=== PATIENT | female | born 1985 | race Caucasian/White ===

== ENCOUNTER 2018-06-10 18:04 | Emergency (ER) | payer OTHER, SELFPAY ==
[2018-06-10 18:04] VITALS: BP 132/78; PULSE 94; RESP 16; TEMP 36.2; O2SAT 100; BMI 38.7
--- NOTE | 2018-06-10 19:20 | ED.DCSUM_ITS ---
- ER Visit Summary Date of Service: 06/10/18 Chief Complaint: Vaginal bleeding History of Present Illness: The patient is a 33 F presenting for evaluation secondary to vaginal bleeding. Patient states that she is a at 11 weeks who was doing yard work today and noted that she had some vaginal bleeding when she came inside. She denies any pelvic pain or loss of fluid. Patient is O- blood type. Physical Examination: Vital signs are within normal limits, patient is afebrile. General: Patient is well-nourished well-developed and in no acute distress. Head: Normocephalic, atraumatic Eyes: Pupils equal round and reactive bilaterally, extra occular motion intact bialterally ENT: Moist mucous membranes Neck: Supple, no lymphadenopathy, no JVD, no meningismus CVS: Heart regular rate and rhythm, no murmurs, rubs or gallops, radial pulses 2+ bilaterally Resp: Respirations nondistressed, lung sounds clear bilaterally Abdomen: Soft, nontender, nondistended, no palpable masses, normal bowel sounds Back: Nontender Extremities: Nontender, atraumatic, active full range of motion, no peripheral edema Skin: warm, no rashes, no petechia Neuro: Alert and oriented x 4, CN 2-12 intact, no lateralizing neurological defecits Psyc: Normal affect Test Results: O neg Emergency Department Course and Treatment: Patient presented with vaginal bleeding. Bedside ultrasound confirmed movement with heart rate of 161. Patient was given RhoGam in the emergency department and was discharged with outpatient follow-up with OB Disposition: Discharge Impression: 1. Threatened miscarriage This note was generated with Zipzoom dictation software. It may contain incorrect words, spelling, and punctuation that were not noted in review of the chart prior to signing ED Disposition - Plan for ED Patient: Disposition: Home or Assisted Living Chief Complaint: Vag Bld, Preg Diagnosis: Threatened miscarriage Instructions: ED Miscarriage Poss Additional Instructions: Followup at the [facility]
--- NOTE | 2018-06-10 21:27 | ED.RN ---
BAR CODE TO VERIFY RHOGAM WOULD NOT SCAN. LAB UP TO ASSIST, UNABLE TO SCAN. LOT NUMBER, PRODUCT VERIFIED BY SECOND RN [place].
== END 2018-06-10 21:18 | disposition home or self-care (01) ==
PROVIDERS: Emergency Provider Emergency Medicine; Family Provider Family Medicine; PCP Family Medicine
DX: O20.0 Threatened abortion (principal); Z3A.11 11 weeks gestation of pregnancy; E10.9 Type 1 diabetes mellitus without complications
CPT/HCPCS: 86850; 86900; 90384; 99282; J2790

== ENCOUNTER 2018-12-22 02:55 | Inpatient (IN) | payer OTHER, SELFPAY ==
--- NOTE | 2018-12-20 17:26 | PCM.HP.BLA ---
History and Physical Date of Admission: 12/22/18 Pre-Op History and Physical HPI: The patient is a 33 year old female presenting for pre-operative visit. She is scheduled for , for LGA, GDM on 12/22/18. Procedure discussed along with risks, benefits and complications. Other alternatives discussed for management. Consent form signed? Yes. PAST MEDICAL HISTORY Diagnosis Date ? Abnormal Pap smear of cervix 2008 PPH, ? Depression ? Mental disorder ? depression ? Type 1 diabetes mellitus (HCC) PAST SURGICAL HISTORY Procedure Laterality Date ? PAST SURGICAL HISTORY OF wisdom teeth Current Outpatient Medications Medication Sig Dispense Refill ? blood sugar diagnostic (CONTOUR NEXT TEST STRIPS) test strip Checking blood sugars 4 times daily. DX: O24.011, insulin requiring. 400 Strip 1 ? Iron 18 mg tab Take by mouth. ? insulin aspart U-100 (NOVOLOG U-100 INSULIN ASPART) 100 unit/mL soln INJECT SUBCUTANEOUS 90 UNITS TOTAL DAILY VIA INSULIN PUMP. 90 mL 1 ? aspirin, enteric coated (ECOTRIN LOW STRENGTH) 81 mg EC tablet Take 1 tablet by mouth once daily. ? Dsbreplv-Kj-Ffm-Fe-FA ( VITAMIN) tab Take 1 tablet by mouth once daily. ? Blood-Glucose Meter (BLOOD GLUCOSE MONITORING) monitoring kit 1 Each as needed. 1 Each 0 ? Lancets (MICROLET LANCET) lancets use as directed 8 times daily 300 Each 4 No current facility-administered medications for this visit. ALLERGIES: Patient has no known allergies. PERSONAL HISTORY: Social History Socioeconomic History Marital status: Spouse name: Js Number of children: 1 Years of education: 13 Highest education level: Not on file Social Needs Financial resource strain: Not on file Food insecurity - worry: Not on file Food insecurity - inability: Not on file Transportation needs - medical: Not on file Transportation needs - non-medical: Not on file Occupational History Occupation: CUSTOMER SERVICE Employer: [employer] Tobacco Use Smoking status: Former Smoker Packs/day: 0.25 Years: 4.00 Pack years: 1 Types: Cigarettes Start date: 09/26/1999 Quit date: 09/26/2003 Years since quittin.2 Smokeless tobacco: Never Used Tobacco comment: pateint smoked less then a quarter a pack per day Substance and Sexual Activity Alcohol use: Yes Comment: rare, not while Drug use: No Sexual activity: Yes Partners: Male Other Topics Concerns: Not on file Social History Narrative Lives with 10 year old son. He's in good health. FAMILY HISTORY: FAMILY HISTORY Problem Relation Age of Onset ? Diabetes Brother ? Arthritis Mother ? No Known Problems Father ? No Known Problems Brother ? No Known Problems Maternal Grandmother ? No Known Problems Maternal Grandfather ? No Known Problems Paternal Grandmother ? No Known Problems Paternal Grandfather REVIEW OF SYMPTOMS: GENERAL: denies fevers or chills ENDOCRINOLOGY: has not been on steroids Cardiology : denies palpitations or chest pain Respiratory: denies SOB or cough Hematology: denies history of prolonged bleeding or easy bruising or VTE Allergy: Denies history of personal or family history of allergy to anesthesia PHYSICAL EXAMINATION: VITALS: Blood pressure 130/84, weight 225 lb (102.1 kg), last menstrual period 03/23/2018. GENERAL: The patient is well nourished, well hydrated in no acute distress. , The patient is oriented to time, place, and person. NECK: Supple. No lynphadenopathy, normal thyroid, no thyromegaly. LUNGS: Clear to auscultation bilaterally. no wheezes, rhonchi or rales HEART: Regular rate and rhythm, Normal heart sounds and No murmurs or gallops abd- soft, nontender, gravid, large for gestational age IMPRESSIOPlan: The risks/benefits/alternatives and personal involved for the planned c/s were reviewed with the patient. Her questions were answered to her satisfaction and she desires to proceed. Consent was signed. I reviewed with her postop instructions and expectations. Patient will be 39 1/7 weeks at time of planned c/s on 12/22/18. This H&P was performed in my office 12/20/18 I have reviewed and updated past medical and surgical history, medications and allergies Jovita Reese M.D.
[2018-12-22] VITALS (19 sets, daily range): BP systolic 91–136; BP diastolic 41–88; PULSE 76–109; RESP 16–18; TEMP 36.2–36.9; O2SAT 94–100; BMI 39.9
--- NOTE | 2018-12-22 | PLAC_PTH ---
PATIENT: CHAZ VERGARA LOC: WP U#:[id number] AGE/SX: 33/F ROOM: WP006 RE12/22/[address]: Dr. Jovita Reese MD : 1985 BED: 1 DIS: 12/25/2018 SPEC #: [id number] RECD: 12/22/18 12:25 STATUS: DELMER REQ #: [id number] MARY: 12/22/18 00:[address]: Jovita Reese DEPT: SURGICAL PATHOLOGY RECD BY: Keith Paredes ENTERED: 12/22/18 12:25 SP TYPE: PLACENTA OTHR DR: Dr. Yovany Hurtado MD Tissues: Placenta, NOS Procedures: Surgery Specimen Level V HEADER OPERATION: Primary section PRE-OP DIAGNOSIS: Polyhydramnios TISSUE SUBMITTED: Placenta MICROSCOPIC DIAGNOSIS Gilliam placenta (870 gm): Umbilical cord - trivascular with no evidence of inflammation. Placental membranes - no pathologic change. Placental disc - foci of organizing intraparenchymal hemorrhage, mildly increased intraparenchymal fibrin plaques and mild Aruna-Guillermo change. AM:brendon 12/27/18 MICROSCOPIC DESCRIPTION Slides are reviewed. GROSS DESCRIPTION SPECIMEN: PLACENTA / CLINICAL INFORMATION: A. Weight: 4.572 kg B. Gestational Age: 39 weeks C. Sex: Female PLACENTAL WEIGHT (POST FIXATION): 870 gm PLACENTAL DIMENSIONS: 17 x 15 x 4 cm PLACENTAL SHAPE: Usual ovoid PLACENTAL WEIGHT FOR GESTATIONAL AGE: Over 99th percentile MEMBRANES - Present A. Insertion: Marginal B. Site of rupture from edge: At edge of placental disc C. Color of membrane: Cordero-braswell D. Abnormalities: None UMBILICAL CORD - Present A. Color: Cordero-braswell B. Insertion: Eccentric C. Length: 27 cm D. Diameter: 1.5 cm E. Number of vessels: Three F. Abnormalities: None PLACENTAL DISC - Present A. Color of surface: Cordero-braswell B. surface abnormalities: None C. Maternal cotyledons: Intact with minimal tears D. Attached retro placental clot: No clot E. Cut surface: Dark red and spongy F. Lesions: Two cordero-white lesions measuring 2 and 2.5 cm in greatest dimension. G. Separate clot: Absent SECTIONS SUBMITTED: 1. Umbilical cord ( end notched) 2. Membrane roll 3. Placental disc, and maternal surfaces, lesion 4. Placental disc, and maternal surfaces, lesion 5. Placental disc, and maternal surfaces AM:brendon 12/26/18 TC:5 CPT: 61135
[2018-12-22 03:55] LABS: Bedside Glucose 147 mg/dL (70-110)
[2018-12-22] MEDS: Lactated Ringers 1,000 ML 999 ML IV (05:16)
[2018-12-22 05:26] LABS: Bedside Glucose 128 mg/dL (70-110)
[2018-12-22 05:32] LABS: Absolute Lymphocyte Count 1.92 X10^3/ul (0.83-4.51); Absolute Neutrophil Count 6.1 X10^3/uL (2.0-7.7); Basophil# 0.01 X10^3/uL; Basophil% 0.1 % (0-1); Eosinophil# 0.04 X10^3/uL; Eosinophils% 0.5 % (0-5); Hematocrit 34.4 % (37-47); Hemoglobin 11.6 g/dl (12.0-15.0); Lymphocyte # 1.92 X10^3/ul (4.0); Mean Corp Hgb Conc 33.7 g/gl (32-36); Mean Corpuscular Hgb 33.6 pg (27.0-32.0); Mean Corpuscular Volume 99.7 fL (81-99); Mean Platelet Vol. 11.6 fl (6.2-12.0); Monocyte# 0.63 X10^3/uL; Monocyte% 7.2 % (0-10); Neutrophil # 6.08 X10^3/uL (2.7-7.7); Neutrophil % 69.9 % (47-70); Platelet Count 187 K/mm3 (150-450); RBC Distribution Width CV 14.8 % (11.6-14.6); RBC Distribution Width SD 52.9 fl (35.1-43.9); Red Blood Count 3.45 M/mm3 (4.2-5.4); White Blood Count 8.7 K/mm3 (4.4-11.0)
[2018-12-22 05:33] LABS: POSITIVE COUNT NO; POSITIVE DIFFERENTIAL NO; POSITIVE MORPHOLOGY NO
[2018-12-22] MEDS: Lactated Ringers 1,000 ML 150 ML IV (06:14)
[2018-12-22 06:56] LABS: Bedside Glucose 106 mg/dL (70-110)
[2018-12-22] MEDS: Sodium Citrate/Citric Acid 30 ML UDC PO (07:11)
[2018-12-22] MEDS: Cefazolin 2 GM in 0.9% Normal Saline 100 ML IV (07:46)
[2018-12-22] MEDS: Oxytocin 30 units/NS 500 ml 30 UNITS/500 ML IV.SOLN 167 UNITS IV (07:54)
[2018-12-22] MEDS: Ketorolac 30 MG/ML Syringe IV ×3 (08:14→19:55)
--- NOTE | 2018-12-22 08:23 | OP.PCM_ITS ---
Delivery Classification: Scheduled Final CHRIS: 12/28/18 Final CHRIS Source: US <20 weeks Gestational age: 39 Weeks and 1 Days Indications for : - - Type 1 diabetes, suspected macrosomia, polyhydramnios, spontaneous rupture of membranes, maternal obesity BMI 40 Description of Procedure: The patient was taken to the operating room. She was prepped and draped in the dorsal supine position with a leftward tilt. A Pfannenstiel skin incision was made approximately 2 cm above the symphysis pubis and carried through to underlying layer fascia with the scalpel. The fascia was incised incised in the midline and extended laterally with the Loredo scissors. The fascia was dissected off the rectus muscles with blunt and sharp dissection. The rectus muscles were in the midline and the peritoneum was entered bluntly. The peritoneal incision was stretched and the bladder blade was placed. The uterine incision was made in a low transverse fashion with the scalpel and extended superiorly and inferiorly with blunt dissection. The amniotic membranes were ruptured bluntly and clear amniotic fluid returned. The infant's head was brought to the incision in the flexed position and delivered without difficulty. The remainder of the infant was delivered with gentle traction and fundal pressure in the standard fashion. The mouth and nares were bulb suctioned. The cord was clamped and cut as the infant was stimulated. Cord clamping was delayed. The was handed off to the waiting nursing staff. The placenta was delivered with fundal massage and gentle traction in the standard fashion. The uterus was exteriorized and cleared of all clots and debris. The cervix was dilated with a ring forcep. The uterine incision was closed with #1 Vicryl in a running locked fashion. A second layer of the same suture was used in an imbricating fashion. Wsagfo-rn-cuobo suture was needed in the midline of the incision in a sinus. The incision was examined and was found to be hemostatic. The uterus was placed back into the peritoneal cavity and hemostasis was again confirmed. The rectus muscles were examined and any bleeding was Bovie cauterized. The parietal peritoneum and rectus muscles were closed en bloc with an 0 Vicryl running suture. The surgical teams outer gloves were then changed. The rectus fascia was examined and any bleeding was Bovie cauterized and the rectus fascia was closed with 1 Vicryl suture in a running standard fashion. The subcutaneous tissue was examining and any bleeding was Bovie cauterized. The subcutaneous tissue was reapproximated with 3-0 Vicryl suture. The skin was closed in a subcuticular fashion by the EMBOSSING PRESS OPERATOR with me present in the labor and delivery suite. I performed the remainder of the procedure with assistance. All sponge, lap, and needle counts were correct. The patient was taken to her room for recovery in a stable condition. Amniotic Membrane Rupture Type: Spontaneous Amniotic Fluid Description: Clear Placenta Disposition: Sent to Pathology Drain: Banks to straight drain Cord Entanglement: None Cord Vessel Description: 3 Vessels Esitmated Blood Loss (ml): 800 Infant Gender: Female (1 minute): 8 (5 minute): 8 Delayed cord clamping: Yes Pre-op Antibiotic Given: Ancef 2 grams IV x1 - And Zithromax Complications: None - Admit VTE Documentation VTE Present on Admission: No VTE Mechan Device Prophylaxis: SCD's VTE Pharm Prophylaxis ordered?: Yes
[2018-12-22] MEDS: Lactated Ringers 1,000 ML 100 ML IV ×3 (08:30→22:06)
[2018-12-22] MEDS: Methylergonovine 0.2 MG/ML Ampul IM (08:57)
--- NOTE | 2018-12-22 09:25 | NURSING ---
updated dr reynaga on pt third large clot. one in the csection room and two in recovery. methergine given [id number]. verbal order received for cytotec 800 mg rectally. will weigh pads and continue to monitor.
[2018-12-22] MEDS: miSOPROStol 200 MCG Tablet 800 MCG RECTAL (09:36)
[2018-12-22 10:36] LABS: Bedside Glucose 162 mg/dL (70-110)
[2018-12-22] MEDS: Senna/Docusate Sodium 1 Tablet PO ×2 (10:41→22:07)
[2018-12-22] MEDS: Insulin Basal Pump 1 UNIT SC (12:16)
[2018-12-22 12:36] LABS: Bedside Glucose 156 mg/dL (70-110)
[2018-12-22] MEDS: 0.9% Saline Lock 10 ML Syringe IV (14:03)
--- NOTE | 2018-12-22 18:16 | NURSING ---
pt eduacted on zofran for nausea. pt denies wanting to use this medication. pt also educated on importance of notifying this RN when dinner has been ordered so a blood sugar can be obtained. pt asymptomatic at this time. will continue to monitor. pt insulin pump in use.
[2018-12-22 22:35] LABS: Bedside Glucose 102 mg/dL (70-110)
[2018-12-23] VITALS (7 sets, daily range): BP systolic 97–120; BP diastolic 54–70; PULSE 78–98; RESP 16–20; TEMP 36.1–36.8; O2SAT 95–100
[2018-12-23] MEDS: Ketorolac 30 MG/ML Syringe IV ×4 (02:34→20:00)
[2018-12-23 04:32] LABS: Hematocrit 24.9 % (37-47); Hemoglobin 8.1 g/dl (12.0-15.0); Mean Corp Hgb Conc 32.5 g/gl (32-36); Mean Corpuscular Hgb 32.8 pg (27.0-32.0); Mean Corpuscular Volume 100.8 fL (81-99); Mean Platelet Vol. 10.8 fl (6.2-12.0); Platelet Count 139 K/mm3 (150-450); RBC Distribution Width CV 14.6 % (11.6-14.6); RBC Distribution Width SD 50.2 fl (35.1-43.9); Red Blood Count 2.47 M/mm3 (4.2-5.4); White Blood Count 9.9 K/mm3 (4.4-11.0)
[2018-12-23 04:35] LABS: Scan Indicated on CBC? Y/N NO
[2018-12-23 05:59] LABS: Pathology Specimen OB SEE PATHOLOGY REPORT
[2018-12-23] MEDS: Enoxaparin 40 MG/0.4 ML Syringe SC (06:26)
[2018-12-23] MEDS: 0.9% Saline Lock 10 ML Syringe IV ×3 (07:45→20:00)
[2018-12-23 08:31] LABS: Bedside Glucose 30 mg/dL (70-110)
--- NOTE | 2018-12-23 08:55 | CASEMGMT ---
Social Work Brief Assessment - Labor and Delivery Unit Refer documentation below for further details. Date of Referral/Notification: 12/22/18 Time of Referral: 12:48P Reason for Referral: HX OF POST DEPRESSION (PPD) Date of Intervention: 12/23/18 Time of Intervention: 8:55A Informant: Medical record and mother of baby (MOB) History: MOB REPORTS HX OF PPD WITH FIRST CHILD. MOB STATES HAD SON, MICHAEL TOLEDO AT THE AGE OF 17. MOB STATES IT TOOK HER SEVERAL YEARS TO SEEK COUNSELING. MOB STATES WAS AT ONE TIME PRESCRIBED LEXAPRO AND WEANED SELF OFF. Assessment: MOB SITTING UP IN BED BREAST FEEDING BABY GIRL, ABRAHAN VERGARA UPON THIS WORKER ENTERING ROOM. FOB, MARKUS VERGARA AT BEDSIDE. INTRODUCED ROLE AND REASON FOR REFERRAL. BOTH VERBALIZED UNDERSTANDING OF REFERRAL. MOB GAVE HX OF HAVING A CHILD AT THE AGE OF 17, SON MICHAEL TOLEDO WHO IS NOW AGE 17. MOB BELIEVES SUFFERED FROM PPD, BUT REPORTS WAS NEVER DIAGNOSED. MOB REPORTS SOUGHT OUT COUNSELING ABOUT 12 YEARS AGO. MOB DENIES ANY OTHER MENTAL HEALTH HX. DENIES ANXIETY, DEPRESSION AND SUCIDAL IDEATION. MOB AND FOB STATE HAVE ALL NEEDS MET FOR BABY. MOB AND FOB REPORT GOOD SUPPORT FROM FAMILY AND FRIENDS. REVIEWED SIGNS AND SYMPTOMS OF PPD AND PROVIDED MOB WITH EDUCATIONAL HANDOUTS. UPDATED MOB'S NURSE, MILADIS ON THE ABOVE. Plan: HOME WITH RESOURCES/EDUCATION ON PPD No further needs requested or indicated. -Carolina Ortiz, CCO, VOLTAGE REGULATOR ASSEMBLER
[2018-12-23 09:11] LABS: Bedside Glucose 90 mg/dL (70-110)
--- NOTE | 2018-12-23 09:38 | PCM.PN.OB ---
Subjective: Doing well per patient and nursing staff. Ambulating and passing flatus. - Physical Exam General: Alert, Oriented x3, Cooperative HEENT: Atraumatic, Normocephalic Neck: Trachea Midline Lungs: Clear to auscultation, Normal air movement, No rhonchi, No wheeze Cardiovascular: Regular rate, Regular Rhythm, No murmurs Abdomen: Soft, Hypoactive Bowel Sounds, - - Not passing flatus but feels like she may need to have a bowel movement. Dressing clean, dry and intact. Extremities: Edema - +1 BLE edema. SCDs in place. Sitting up at side of bed. Psych/Mental Status: Normal Affect, Appropriate Vital Signs Temp Pulse Resp BP Pulse Ox 97.0 F L 90 18 97/54 L 100 12/23/18 03:55 12/23/18 06:30 12/23/18 06:30 12/23/18 03:55 12/23/18 06:30 Oxygen Delivery Method Room Air Weight: 225 lb 8.526 oz Body Mass Index (BMI) 39.9 Intake and Output for Last 24 Hours 12/21/18 12/22/18 12/23/18 23:59 23:59 23:59 Intake Total 5306 / 5306 1786 / 1786 Output Total 1150 / 1150 2800 / 2800 Balance 4156 / 4156 -1014 / -1014 Laboratory Tests Past 24 Hrs 12/23/18 04:05 WBC 9.9 RBC 2.47 L Hgb 8.1 L Hct 24.9 L MCV 100.8 H MCH 32.8 H MCHC 32.5 RDW 14.6 RDW Differential 50.2 H Plt Count 139 L MPV 10.8 POC Glucose 12/23/18 12/23/18 12/22/18 09:06 08:15 22:12 POC Glucose 90 30 L* 102 12/22/18 12/22/18 12:12 09:15 POC Glucose 156 H 162 H Medical Necessity - Tobacco Use Smoking Status: Former smoker Assessment/Plan A: POD #2 section Diabetes Mellitus P: 1) Hgb 8.1, Start Ferrous Sulfate 325mg PO BID, repeat CBC tomorrow in am 2) Continue BS monitoring and Insulin pump 3) without difficulty.
[2018-12-23 12:46] LABS: Bedside Glucose 106 mg/dL (70-110)
[2018-12-23] MEDS: Ferrous Sulfate 325 MG Tablet PO ×2 (13:19→17:42)
[2018-12-23] MEDS: Docusate Sodium 100 MG Capsule PO ×2 (13:20→22:01)
[2018-12-23] MEDS: Acetaminophen 500 MG Tablet 1000 MG PO (15:12)
[2018-12-23] MEDS: Insulin Basal Pump 1 UNIT SC (17:42)
[2018-12-23 17:51] LABS: Bedside Glucose 85 mg/dL (70-110)
[2018-12-23 22:10] LABS: Bedside Glucose 154 mg/dL (70-110)
[2018-12-24 00:40] VITALS: BP 109/74; PULSE 89; RESP 16; TEMP 36.3
[2018-12-24] MEDS: Ketorolac 30 MG/ML Syringe IV (01:16)
[2018-12-24] MEDS: 0.9% Saline Lock 10 ML Syringe IV (01:17)
[2018-12-24] MEDS: Enoxaparin 40 MG/0.4 ML Syringe SC (06:19)
[2018-12-24 06:41] LABS: Bedside Glucose 131 mg/dL (70-110)
[2018-12-24 06:47] LABS: Absolute Lymphocyte Count 1.42 X10^3/ul (0.83-4.51); Absolute Neutrophil Count 6.5 X10^3/uL (2.0-7.7); Basophil# 0.01 X10^3/uL; Basophil% 0.1 % (0-1); Eosinophil# 0.08 X10^3/uL; Eosinophils% 0.9 % (0-5); Hematocrit 22.5 % (37-47); Hemoglobin 7.5 g/dl (12.0-15.0); Lymphocyte # 1.42 X10^3/ul (4.0); Lymphocyte % 16.5 % (19-41); Mean Corp Hgb Conc 33.3 g/gl (32-36); Mean Corpuscular Hgb 33.5 pg (27.0-32.0); Mean Corpuscular Volume 100.4 fL (81-99); Mean Platelet Vol. 10.3 fl (6.2-12.0); Neutrophil # 6.46 X10^3/uL (2.7-7.7); Neutrophil % 74.9 % (47-70); Platelet Count 155 K/mm3 (150-450); RBC Distribution Width CV 15.3 % (11.6-14.6); RBC Distribution Width SD 55.1 fl (35.1-43.9); Red Blood Count 2.24 M/mm3 (4.2-5.4); White Blood Count 8.6 K/mm3 (4.4-11.0)
[2018-12-24 06:49] LABS: POSITIVE COUNT NO; POSITIVE DIFFERENTIAL NO; POSITIVE MORPHOLOGY NO
[2018-12-24 09:00] VITALS: BP 122/75; PULSE 109; RESP 18; TEMP 37.1; O2SAT 97
[2018-12-24] MEDS: Naproxen 250 MG Tablet PO ×2 (09:07→18:31)
[2018-12-24] MEDS: Docusate Sodium 100 MG Capsule PO ×2 (10:20→22:12)
[2018-12-24] MEDS: Insulin Basal Pump 1 UNIT SC (10:20)
[2018-12-24] MEDS: Acetaminophen 500 MG Tablet 1000 MG PO ×2 (10:20→22:12)
--- NOTE | 2018-12-24 11:18 | PN.OBGYN_ITS ---
Subjective: Doing well per patient and nursing staff. Ambulating and taking PO without difficulty. Pain controlled. without difficulty. Baby with elevated bilirubin, under bili lights at this time. Patient requesting discharge home today if baby is stable. Denies any chest pain, shortness of breath, dizziness, increased vaginal bleeding or pain. - Physical Exam General: Alert, Oriented x3, Cooperative HEENT: Atraumatic, Normocephalic Neck: Trachea Midline Lungs: Clear to auscultation, Normal air movement, No rhonchi, No wheeze Cardiovascular: Regular rate, Regular Rhythm, No murmurs Abdomen: Bowel Sounds Present, Soft, - - Fundus firm 2 below U. Appropriately tender. Dressing dry and intact. Extremities: Edema - +1 BLE. Micky's negative. Neurological: Deep Tendon Reflexes 2+/4 and Symmetrical Psych/Mental Status: Normal Affect, Appropriate Vital Signs Temp Pulse Resp BP Pulse Ox 98.8 F 109 H 18 122/75 H 97 12/24/18 09:00 12/24/18 09:00 12/24/18 09:00 12/24/18 09:00 12/24/18 09:00 Oxygen Delivery Method Room Air Weight: 225 lb 8.526 oz Body Mass Index (BMI) 39.9 Intake and Output for Last 24 Hours 12/22/18 12/23/18 12/24/18 23:59 23:59 23:59 Intake Total 5306 / 5306 2386 / 2386 Output Total 1150 / 1150 3800 / 3800 Balance 4156 / 4156 -1414 / -1414 Laboratory Tests Past 24 Hrs 12/24/18 06:25 WBC 8.6 RBC 2.24 L Hgb 7.5 L Hct 22.5 L MCV 100.4 H MCH 33.5 H MCHC 33.3 RDW 15.3 H RDW Differential 55.1 H Plt Count 155 MPV 10.3 Immature Gran % (Auto) 0.600 Neut % (Auto) 74.9 H Lymph % (Auto) 16.5 L [place] % (Auto) 7.0 Eos % (Auto) 0.9 Baso % (Auto) 0.1 Absolute Neuts (auto) 6.5 Absolute Lymphs (auto) 1.42 Total Counted Not Reportable POC Glucose 12/24/18 12/23/18 12/23/18 06:23 22:03 17:39 POC Glucose 131 H 154 H 85 12/23/18 12:41 POC Glucose 106 Medical Necessity - Tobacco Use Smoking Status: Former smoker Assessment/Plan A:POD #2 Section Blood loss anemia P: 1) Doing well . Hgb decreased from 8.1 to 7.5 today. Patient asymptomatic. Taking ferrous sulfate. Consulted and no further management at this time. Reviewed with patient to call if any increased symptoms. Continue Ferrous sulfate 325mg PO BID upon discharge. 2) Pain controlled. Rx Percocet. 3) Follow up in 1 week for incision check. Discussed leaving dressing in place till that visit. 4) Reviewed and discharge instructions. 5) D/C home today if baby stable. If baby is not discharged, patient ok to stay another day. 6) Follow up with machine molder squeeze regarding blood sugars and insulin pump if BS out of range. Discussed importance of adhering to good ADA diet and increased protein for wound healing.
--- NOTE | 2018-12-24 11:26 | DCINST_ITS ---
Discharge Diet: No Restrictions Discharge Activity: May Not Drive - for 2 weeks or while taking narcotic pain meds., May Shower, May Take a Tub Bath - in 7 days. May resume sexual activity in: 4-6 weeks Weight Bearing Status: Full weight bearing Lifting Restrictions: 20 pounds Additional Activity Instructions:: Nothing in the vagina for 4-6 weeks. You may return to work/school in 6 weeks. Call your doctor if your incision/area has: Continuous Slow Oozing, Sudden Increased Bleeding, Increased Pain/ Swelling, Increased Redness, Foul Smelling Discharge Call your doctor if you observe: Fever of 101 or Higher, Inability to urinate, Inability to have a bowel movement, Using more than one pad per hour, Shortness of breath, Dizziness, Fainting spells, Chest pain, Increased palpitations (irregular heartbeat), Calf discomfort, Uncontrolled pain Suture Line Care: Avoid Pulling/Pushing, Avoid Pinching/Bending Cleanse incision/area with: Keep Dressing Clean & Dry - Remove dressing in 7 days after section Additional Instructions: If you experience any of the following, contact your healthcare provider. * Bleeding that soaks a pad every hour for 2 hours * Fever 100.4 or higher * Unrelieved incision or abdominal pain * Swelling, redness, discharge or bleeding from your incision or episiotomy site * Your incision begins to separate * Problems urinating (including inability to urinate or burning while urinating). * Visual changes * Severe headache * Flu-like symptoms * Pain or redness in one of both of your breasts * Pain, warmth, tenderness or swelling in your legs, especially the calf area * Frequent nausea and vomiting * Symptoms of depression or anxiety If you experience any of the following, call 911 or go to the nearest Emergency Room. * Chest pain * Problems breathing * Seizure activity * Partial or complete paralysis of a body part, slurred speech, weakness or drooping of the face, or a sudden inability to walk or hold your balance Allergies/Adverse Reactions: Allergies No Known Allergies Allergy (Verified 12/22/18 04:12) Medications to take at Discharge Novolog Pump 06/10/18 Vits [Prenatabs FA ] 1 tablet PO DAILY 06/10/18 Ferrous Sulfate [Iron] 325 mg PO DAILY 12/22/18 Ferrous Sulfate 325 mg PO 1200,1700 #0 tablet 12/24/18 Oxycodone HCl/Acetaminophen [Percocet 5/325] 1 - 2 tab PO Q4H PRN PRN 7 Days #20 tab 12/24/18 The following prescriptions were given: Oxycodone HCl/Acetaminophen [Percocet 5/325] 1 - 2 tab PO Q4H PRN PRN 7 Days #20 tab PRN Reason: Pain Follow-Up: Call to make an appointment with your doctor for an incision check in 1-2 weeks. You will also need a 6 week post- follow up appointment. Test results from this visit will be discussed in further detail at your follow- up appointment, if applicable. Please Follow Up With: Jovita Reese MD Primary Care Physician: Yovany Hurtado MD [Primary Care Provider] -
[2018-12-24] MEDS: oxyCODONE 5 MG Tablet PO (11:27)
--- NOTE | 2018-12-24 11:32 | DS.PCM_ITS ---
Discharge Date and Diagnosis Date of Admission: 12/22/18 Date of Discharge: 12/24/18 - Primary Discharge Diagnosis Type 1 diabetes, Section, Blood loss anemia, maternal obesity BMI 40 Hospital Course and Treatment Summary of Care Provided: The patient is a 33 year old F that present with spontaneous rupture of membranes on day of scheduled section at 39 Weeks and 1 Day due to Type 1 diabetes, suspected macrosomia, polyhydramnios, maternal obesity BMI 40. section performed without complications. Post op day 1 Hgb decreased from 11.6 to 8.1. Ferrous sulfate started, patient asymptomatic. Post op day #2 hgb decreased from 8.1 to 7.5, patient remains asymptomatic. No signs of continued bleeding and patient without complaints. No other complications. Discharge home on POD #2. - Physical Exam Vital Signs Temp Pulse Resp BP Pulse Ox 98.8 F 109 H 18 122/75 H 97 12/24/18 09:00 12/24/18 09:00 12/24/18 09:00 12/24/18 09:00 12/24/18 09:00 Oxygen Delivery Method Room Air Weight: 225 lb 8.526 oz Body Mass Index (BMI) 39.9 Intake and Output for Last 24 Hours 12/22/18 12/23/18 12/24/18 23:59 23:59 23:59 Intake Total 5306 / 5306 2386 / 2386 Output Total 1150 / 1150 3800 / 3800 Balance 4156 / 4156 -1414 / -1414 Laboratory Tests Past 24 Hrs 12/24/18 06:25 WBC 8.6 RBC 2.24 L Hgb 7.5 L Hct 22.5 L MCV 100.4 H MCH 33.5 H MCHC 33.3 RDW 15.3 H RDW Differential 55.1 H Plt Count 155 MPV 10.3 Immature Gran % (Auto) 0.600 Neut % (Auto) 74.9 H Lymph % (Auto) 16.5 L Buchanan % (Auto) 7.0 Eos % (Auto) 0.9 Baso % (Auto) 0.1 Absolute Neuts (auto) 6.5 Absolute Lymphs (auto) 1.42 Total Counted Not Reportable POC Glucose 12/24/18 12/23/18 12/23/18 06:23 22:03 17:39 POC Glucose 131 H 154 H 85 12/23/18 12:41 POC Glucose 106 Discharge Diet: No Restrictions Discharge Activity: May Not Drive - for 2 weeks or while taking narcotic pain meds., May Shower, May Take a Tub Bath - in 7 days. May resume sexual activity in: 4-6 weeks Weight Bearing Status: Full weight bearing Additional Activity Instructions:: Nothing in the vagina for 4-6 weeks. You may return to work/school in 6 weeks. Call your doctor if your incision/area has: Continuous Slow Oozing, Sudden Increased Bleeding, Increased Pain/ Swelling, Increased Redness, Foul Smelling Discharge Call your doctor if you observe: Fever of 101 or Higher, Inability to urinate, Inability to have a bowel movement, Using more than one pad per hour, Shortness of breath, Dizziness, Fainting spells, Chest pain, Increased palpitations (irregular heartbeat), Calf discomfort, Uncontrolled pain Suture Line Care: Avoid Pulling/Pushing, Avoid Pinching/Bending Cleanse incision/area with: Keep Dressing Clean & Dry - Remove dressing in 7 days after section Home Medications: Medications to take at Discharge Novolog Pump 06/10/18 Vits [Prenatabs FA ] 1 tablet PO DAILY 06/10/18 Ferrous Sulfate 325 mg PO 1200,1700 #0 tablet 12/24/18 Oxycodone HCl/Acetaminophen [Percocet 5/325] 1 - 2 tab PO Q4H PRN PRN 7 Days #20 tab 12/24/18 Following Prescrptions Were Given to Patient: Oxycodone HCl/Acetaminophen [Percocet 5/325] 1 - 2 tab PO Q4H PRN PRN 7 Days #20 tab PRN Reason: Pain Primary Care Physician: Yovany Hurtado MD [Primary Care Provider] - Please Follow Up With: Jovita Reese MD Medical Necessity - Tobacco Use Smoking Status: Former smoker Meaningful Use Info Meaningful Use Diagnoses (Choose all that apply): None applicable
[2018-12-24 14:40] VITALS: BP 126/85; PULSE 96; RESP 18; TEMP 36.6; O2SAT 97
[2018-12-24 14:51] LABS: Bedside Glucose 81 mg/dL (70-110)
[2018-12-24] MEDS: Ferrous Sulfate 325 MG Tablet PO ×2 (15:27→19:40)
[2018-12-24 19:46] LABS: Bedside Glucose 131 mg/dL (70-110)
[2018-12-24 20:00] VITALS: BP 139/86; PULSE 103; RESP 16; TEMP 37.1; O2SAT 98
[2018-12-25 01:27] VITALS: BP 134/78; PULSE 79; RESP 18; TEMP 36.3; O2SAT 99
[2018-12-25] MEDS: Naproxen 250 MG Tablet PO ×2 (01:31→09:55)
[2018-12-25] MEDS: Enoxaparin 40 MG/0.4 ML Syringe SC (05:55)
[2018-12-25] MEDS: Acetaminophen 500 MG Tablet 1000 MG PO (05:56)
[2018-12-25 06:05] LABS: Bedside Glucose 61 mg/dL (70-110)
[2018-12-25 07:05] LABS: Bedside Glucose 70 mg/dL (70-110)
[2018-12-25 07:54] VITALS: BP 117/78; PULSE 98; RESP 18; TEMP 36.7; O2SAT 97
[2018-12-25 08:45] LABS: Bedside Glucose 56 mg/dL (70-110)
[2018-12-25 08:45] LABS: Bedside Glucose 68 mg/dL (70-110)
--- NOTE | 2018-12-25 09:54 | PN.OBGYN_ITS ---
Subjective: No complaints - Physical Exam General: Alert, Oriented x3 Abdomen: Soft, Non Tender, Non-Distended - ff mid & below umb; incision - bandage c/d/i Extremities: No Calf Tenderness Neurological: Cranial nerves II-XII grossly intact Vital Signs Temp Pulse Resp BP Pulse Ox 98.0 F 98 18 117/78 97 12/25/18 07:54 12/25/18 07:54 12/25/18 07:54 12/25/18 07:54 12/25/18 07:54 Oxygen Delivery Method Room Air Weight: 225 lb 8.526 oz Body Mass Index (BMI) 39.9 Intake and Output for Last 24 Hours 12/23/18 12/24/18 12/25/18 23:59 23:59 23:59 Intake Total 2386 / 2386 Output Total 3800 / 3800 Balance -1414 / -1414 POC Glucose 12/25/18 12/25/18 12/25/18 08:33 08:04 07:00 POC Glucose 68 L 56 L 70 12/25/18 12/24/18 12/24/18 05:54 19:38 14:34 POC Glucose 61 L 131 H 81 Medical Necessity - Tobacco Use Smoking Status: Former smoker Assessment/Plan POD#3 Anemia - continue iron, asymptomatic DM - continue insulin pump - managed by main entree cook and cashier D/c home
[2018-12-25] MEDS: Docusate Sodium 100 MG Capsule PO (09:56)
[2018-12-25] MEDS: Insulin Basal Pump 1 UNIT SC (09:57)
[2018-12-26 07:11] LABS: Bedside Glucose 37 mg/dL (70-110)
[2018-12-26 07:11] LABS: Bedside Glucose 56 mg/dL (70-110)
== END 2018-12-25 11:50 | disposition home or self-care (01) | DRG 786 ==
PROVIDERS: Advanced Practice Midwife; Admitting Provider Obstetrics & Gynecology; Family Provider Family Medicine; PCP Family Medicine; Referring Provider Obstetrics & Gynecology; Visit Provider Obstetrics & Gynecology
PROC: 10D00Z1 Extraction of Products of Conception, Low, Open Approach (ICD-10-PCS; CPT 59514; principal; 2018-12-22 07:15)
DX: O36.63X0 Maternal care for excessive fetal growth, third trimester, not applicable or unspecified (principal); O24.02 Pre-existing type 1 diabetes mellitus, in childbirth; D62 Acute posthemorrhagic anemia; O99.02 Anemia complicating childbirth; E10.9 Type 1 diabetes mellitus without complications; O40.3XX0 Polyhydramnios, third trimester, not applicable or unspecified; O99.214 Obesity complicating childbirth; E66.9 Obesity, unspecified; Z96.41 Presence of insulin pump (external) (internal); Z3A.39 39 weeks gestation of pregnancy; Z37.0 Single live birth; Z87.891 Personal history of nicotine dependence; Z79.4 Long term (current) use of insulin
CPT/HCPCS: 59025; 59050; 82962; 85025; 85027; 86850; 86900; 86901; 88307; 99218; J7120; A4216; G0378; J2405

== ENCOUNTER 2020-10-31 05:00 | Inpatient (IN) | payer OTHER, SELFPAY ==
[2018-12-22 04:55] VITALS: BMI 39.9
--- NOTE | 2020-10-24 11:56 | PCM.HPOB.BLA ---
- Problem List (1) Type 1 diabetes Status: Acute (2) 39 weeks gestation of Status: Acute (3) History of section Status: Acute History and Physical Date of Admission: 10/31/20 DATE OF SERVICE: October 24, 2020 ? PROBLEM:?h/o prior section, 38 week gestation, type 1 diabetes, desires repeat section ? PAST SURGICAL HISTORY:? PAST SURGICAL HISTORYExpand by Default PAST SURGICAL HISTORY Procedure Laterality Date ? DELIVERY ONLY ? 12/22/2018 ? C/S low transverse ? PAST SURGICAL HISTORY OF ? ? ? wisdom teeth ? PAST MEDICAL HISTORY:? PAST MEDICAL HISTORYExpand by Default PAST MEDICAL HISTORY Diagnosis Date ? Abnormal Pap smear of cervix 2007 ? PPH, ? Anemia ? ? Depression ? ? Mental disorder ? ? depression ? ? Type 1 diabetes mellitus (HCC) ? ? SUBJECTIVE:?Doing well. BG log reviewed and majority within goal. No ctx, vb, lof. Good FM. BPP today 03/08 and fluid normal - final report pending.? ? SOCIAL HISTORY:? SOCIAL HISTORYExpand by Default Social History ? Tobacco Use ? Smoking status: Former Smoker ? ? Packs/day: 0.25 ? ? Years: 4.00 ? ? Pack years: 1.00 ? ? Types: Cigarettes ? ? Start date: 09/26/1999 ? ? Quit date: 09/26/2003 ? ? Years since quittin.0 ? Smokeless tobacco: Never Used ? Tobacco comment: pateint smoked less then a quarter a pack per day Vaping Use ? Vaping Use: Never used Substance Use Topics ? Alcohol use: Not Currently ? ? Comment: rare, not while ? Drug use: No ? ALLERGIESExpand by Default ALLERGIES No Known Allergies ? Current Outpatient Medications on File Prior to Visit Medication Sig ? fluticasone (FLONASE) 50 mcg/actuation nasal spray Use 2 Sprays in each nostril once daily. Rinse mouth after use. ? Lancets (MICROLET LANCET) lancets use as directed 8 times daily ? insulin aspart U-100 (NOVOLOG U-100 INSULIN ASPART) 100 unit/mL INJECT SUBCUTANEOUS 90 UNITS TOTAL DAILY VIA INSULIN PUMP. ? blood sugar diagnostic (CONTOUR NEXT TEST STRIPS) test strip Use as instructed 8 times daily, E10.9, on insulin pump; ? aspirin, enteric coated (ECOTRIN LOW STRENGTH) 81 mg EC tablet Take 1 tablet by mouth once daily. ? insulin glargine (BASAGLAR KWIKPEN U-100 INSULIN) 100 unit/mL (3 mL) Use 26 units daily at bedtime if insulin pump fails ? Insulin Pomeroy, Disposable, (BD ULTRAFINE III MINI PEN) 31 gauge x 3/16 Use one needle with basaglar if insulin pump fails ? Ffhjbzde-[id number]-[id number]-[id number]-FA ( VITAMIN) tab Take 1 tablet by mouth once daily. ? No current facility-administered medications on file prior to visit. ? OBJECTIVE: ? VITALS:? BP 120/74 ? Wt 215 lb (97.5 kg) ? LMP 02/02/2020 (Approximate) ? BMI 37.62 kg/m? ? HEENT: ?Normocephalic, atraumatic, Mucus membranes moist without lesions. ? NECK: ???Soft and Supple. ?No adenopathy , thyromegaly or bruits. ? SKIN: No lesions. ? CHEST: Clear to auscultation. ?No wheezes or rales. ?Good air exchange. ? HEART: Regular rate and rhythm ?No S3 or S4. ?No gallops or rubs. ? BACK: Nontender with no CVA tenderness. ? ABDOMEN: Soft, non-tender, non-distended, no masses, no hepatosplenomegaly. ? ? LOWER EXTREMITIES: There was no pitting edema, no palpable cords and no skin changes. ? ? ? ASSESSMENT:?h/o prior section, 38 week gestation, type 1 diabetes, desires repeat section ? PLAN: Discussed r/b/a to TOLAC vs repeat section. She is considering TOLAC if she comes in in active labor and is progressing quickly. Otherwise she desires a repeat section. She declines sterilization. Discussed repeat section.?The rationale for the proposed surgery was discussed in addition to risks, benefits, and alternatives. ?General pre- and post-operative care was reviewed. ?Questions were answered. ?After discussion, the patient indicated a desire to proceed with the planned surgery. ? The patient's tower control operator gave her post op instructions for her insulin pump. Will have faxed over to L&D to have. ? BPP today. Discussed daily FKC's and when to call. RTO for incision check.? ? Robina Laws,?DO
[2020-10-31] VITALS (15 sets, daily range): BP systolic 79–121; BP diastolic 51–78; PULSE 76–102; RESP 16–20; TEMP 36.1–36.8; O2SAT 97–100; BMI 38.6
[2020-10-31] MEDS: Lactated Ringers 1,000 ML 999 ML IV (05:20)
[2020-10-31 05:30] LABS: Absolute Lymphocyte Count 1.69 X10^3/uL (0.83-4.51); Absolute Neutrophil Count 7.2 X10^3/uL (2.0-7.7); Basophil# 0.02 X10^3/uL; Basophil% 0.2 % (0-1); Eosinophil# 0.07 X10^3/uL; Eosinophils% 0.7 % (0-5); Hematocrit 35.3 % (37-47); Lymphocyte # 1.69 X10^3/ul (4.0); Lymphocyte % 17.1 % (19-41); Mean Corpuscular Hgb 35.2 pg (27.0-32.0); Mean Corpuscular Volume 103.5 fL (81-99); Mean Platelet Vol. 10.5 fl (6.2-12.0); Monocyte# 0.72 X10^3/uL; Monocyte% 7.3 % (0-10); NRBC Flagged by Analyzer 0 % (0-5); Neutrophil # 7.21 X10^3/uL (2.7-7.7); Neutrophil % 73.2 % (47-70); Platelet Count 145 K/mm3 (150-450); RBC Distribution Width CV 13.5 % (11.6-14.6); RBC Distribution Width SD 51.4 fl (35.1-43.9); Red Blood Count 3.41 M/mm3 (4.2-5.4); White Blood Count 9.9 K/mm3 (4.4-11.0)
[2020-10-31] MEDS: Acetaminophen 500 MG Tablet 1000 MG PO ×3 (05:54→17:31)
[2020-10-31] MEDS: Sodium Citrate/Citric Acid 30 ML UDC PO (05:54)
[2020-10-31 06:01] LABS: Bedside Glucose 76 mg/dL (70-110)
[2020-10-31] MEDS: Lactated Ringers 1,000 ML 150 ML IV (06:18)
[2020-10-31] MEDS: Cefazolin 2 GM in 0.9% Normal Saline 100 ML IV (07:16)
[2020-10-31] MEDS: Ondansetron 4 MG/2 ML Vial IV (07:20)
--- NOTE | 2020-10-31 08:42 | PCM.OPRPT ---
Problem List (1) Type 1 diabetes Status: Acute (2) 39 weeks gestation of Status: Acute (3) History of section Status: Acute Report of Operation Date of Procedure: 10/31/20 Pre-Operative Diagnosis: 39 week gestation, type 1 diabetes, history of prior section Post-Operative Diagnosis: As above Surgery/Procedure Performed:: RTLCS Description of Surgical Findings:: Normal-appearing uterus, bilateral tubes, bilateral ovaries. Clear fluid. Normal-appearing placenta with a three-vessel cord. Viable female in vertex presentation. Minimal to no scar tissue. bakery associate: Luis Oates - Assisted for the entire portion of the surgery. He assisted with prepping and draping the patient. He assisted with delivery of the baby. He assisted with closure. Type of Anesthesia:: Spinal Special Medications: None Specimen's removed: Placenta Drains: Banks Estimated Blood Loss (mL): 900 Fluids Replaced: 1 L Description of Procedure: The patient was taken to the operating room where spinal anesthesia was induced and found to be adequate. She declined tubal sterilization. She desired a repeat section after discussion of risks and benefits. She was prepped and draped in the dorsal position with a leftward tilt. A Pfannenstiel skin incision was made with a scalpel and this was carried down to the underlying layer of fascia. The fascia was incised in midline. The fascia was extended laterally using Loredo scissors. The fascia was dissected off of the rectus muscles. The rectus muscles were in the midline. The peritoneum was entered bluntly with good visualization of the bladder. The incision was extended bluntly. A low transverse incision was made on the uterus with a scalpel. Membranes were ruptured for clear fluid. The head of the was gently brought to the hysterotomy while flexed. The was delivered without any force or delay, and atraumatically. The cord was clamped and cut after a slight delay. was handed off to nursery staff. The placenta was manually removed from the uterus. The uterus was exteriorized. The uterus was cleared of all clot and debris. The uterine incision was closed in a 2 layer fashion using Vicryl. Several additional [id number]-vh-[id number] sutures were placed for hemostasis. The hysterotomy was hemostatic. The uterus was placed back in the abdomen. Olivia was placed over the hysterotomy. The peritoneum was closed with Vicryl in a running fashion. The fascia was closed with PDS in a running fashion. Subcutaneous space was irrigated and made hemostatic with Bovie cautery. The subcutaneous space was reapproximated Vicryl. The skin was closed with Monocryl subcuticular fashion. Steri-Strips and dressing were placed. Instrument, sponge, needle counts were correct. The patient was taken to recovery in stable condition. Grafts/Implants Used: None - Complications None - Admit VTE Documentation VTE Present on Admission: No VTE Mechan Device Prophylaxis: SCD's VTE Pharm Prophylaxis ordered?: Yes
[2020-10-31] MEDS: Oxytocin 30 units/NS 500 ml 30 UNITS/500 ML IV.SOLN 167 UNITS IV (09:12)
[2020-10-31] MEDS: Ketorolac 30 MG/ML Syringe IV ×3 (09:31→21:29)
[2020-10-31] MEDS: Lactated Ringers 1,000 ML 100 ML IV ×2 (10:58→12:02)
[2020-10-31] MEDS: oxyCODONE 5 MG Tablet PO ×2 (12:01→20:00)
--- NOTE | 2020-10-31 13:03 | PCM.PN.BLA ---
Progress Note Copied and pasted insulin regimen from pt's payroll machine operator from [facility] records: After delivery?cut basal rates by 1/2. Plus the following adjustments: Bolus: Insulin:carb ratio 00:00= 6.0 ?0700 = 6.0 ?1030=6.0 1600=5.0 Sensitivity 00:00=30 Blood glucose target 00:00= 90-120 Insulin duration= 3? STROKE Vital Signs/Narrative: Vital Signs Temp Pulse Resp BP Pulse Ox 10/31/20 10:49 97.6 F L 76 16 110/70 100 10/31/20 10:48 97.6 F L 84 16 121/68 H 100 10/31/20 10:30 97.6 F L 102 H 16 79/53 L 99 10/31/20 10:15 97.6 F L 77 16 121/51 H 100 10/31/20 10:00 97.7 F L 82 16 106/65 100 10/31/20 09:45 97.7 F L 82 16 106/61 100 10/31/20 09:30 97.6 F L 76 16 112/72 100 10/31/20 09:15 97.0 F L 89 16 113/70 99
--- NOTE | 2020-10-31 20:17 | NURSING ---
@ 1945 Patient states that her BS at 1800 was 79 when she checked it.
[2020-10-31] MEDS: Enoxaparin 40 MG/0.4 ML Syringe SC (21:33)
[2020-10-31] MEDS: 0.9% Saline Lock 10 ML Syringe IV (21:34)
--- NOTE | 2020-10-31 22:30 | NURSING ---
Taking over pt and care at this time.
[2020-11-01 00:30] VITALS: BP 114/72; PULSE 65; RESP 18; TEMP 36.4; O2SAT 100
[2020-11-01] MEDS: Acetaminophen 500 MG Tablet 1000 MG PO ×3 (00:32→12:13)
[2020-11-01 03:47] VITALS: BP 110/58; PULSE 99; RESP 16; TEMP 36.3; O2SAT 95
[2020-11-01] MEDS: Ketorolac 30 MG/ML Syringe IV (03:48)
[2020-11-01] MEDS: 0.9% Saline Lock 10 ML Syringe IV (03:48)
--- NOTE | 2020-11-01 04:20 | NURSING ---
04:20 pt called this RN to inform that blood glucose is 50. Pt is asymptomatic. Small snack and 4oz orange juice obtained for pt. Pt Type 1 DM and has insulin pump. Pt managing own blood glucose. This RN will monitor and inform Dr. Laws.
[2020-11-01 06:07] LABS: Hematocrit 27.1 % (37-47); Hemoglobin 9.2 g/dL (12.0-15.0); Mean Corp Hgb Conc 33.9 g/dL (32-36); Mean Corpuscular Hgb 35.5 pg (27.0-32.0); Mean Corpuscular Volume 104.6 fL (81-99); Mean Platelet Vol. 10.4 fl (6.2-12.0); Platelet Count 127 K/mm3 (150-450); RBC Distribution Width CV 13.7 % (11.6-14.6); RBC Distribution Width SD 52.2 fl (35.1-43.9); Red Blood Count 2.59 M/mm3 (4.2-5.4); White Blood Count 11.7 K/mm3 (4.4-11.0)
--- NOTE | 2020-11-01 07:30 | NURSING ---
Pt reported low blood sugar of 44 this am at 0700am when bedside report was given. Pt stated she drank an additional 4oz orange juice and plans to recheck. Pt remains asymptomatic. Oncoming RN aware and monitoring pt. Educated pt and offered additional snack if needed.
[2020-11-01] MEDS: Ibuprofen 600 MG Tablet PO (08:58)
[2020-11-01 09:20] VITALS: BP 114/66; PULSE 96; RESP 18; TEMP 36.6
--- NOTE | 2020-11-01 09:20 | PCM.PN.OB ---
Patient Problems: Active and Suspected Problems Type 1 diabetes (Acute) 39 weeks gestation of (Acute) History of section (Acute) Subjective: Patient seen at bedside. Feeling well. Pain is controlled with Tylenol and Motrin PO. Ambulating, voiding and passing flatus. without difficulty. Desires discharge home today. - Physical Exam Vitals/I&O's: Vital Signs Temp Pulse Resp BP Pulse Ox 97.3 F L 99 16 110/58 L 95 11/01/20 03:47 11/01/20 03:47 11/01/20 03:47 11/01/20 03:47 11/01/20 03:47 Oxygen Delivery Method Room Air Weight: 218 lb 3.2 oz Body Mass Index (BMI) 38.6 Intake and Output for Last 24 Hours 10/30/20 10/31/20 11/01/20 23:59 23:59 23:59 Intake Total 3475.67 / 3475.67 Output Total 2300 / 2300 800 / 800 Balance 1175.67 / 1175.67 -800 / -800 General: Alert, Oriented x3 HEENT: Atraumatic Neck: Supple Cardiovascular: Regular rate Abdomen: Soft, Non Tender, Passing Flatus Extremities: Capillary Refill Less than 3 Seconds, No Calf Tenderness Skin: No rashes Musculoskeletal: No Tenderness to Palpation of Joints or Extremities Neurological: Cranial nerves II-XII grossly intact Psych/Mental Status: Normal Affect, Appropriate Laboratory Results 11/01/20 05:55: WBC 11.7 H, RBC 2.59 L, Hgb 9.2 L, Hct 27.1 L, MCV 104.6 H, MCH 35.5 H, MCHC 33.9, RDW Std Deviation 52.2 H, RDW Coeff of Wayne 13.7, Plt Count 127 L, MPV 10.4 Current Medications Acetaminophen (Acetaminophen 500 Mg Tablet) 1,000 mg PO Q6 [facility] Last Admin: 11/01/20 05:58 Dose: 1,000 mg Documented by: Bisacodyl (Bisacodyl 10 Mg Suppository) 10 mg RC UD PRN PRN Reason: If no BM Enoxaparin Sodium (Enoxaparin 40 Mg/0.4 Ml Syringe) 40 mg SC DAILY [facility] Last Admin: 10/31/20 21:33 Dose: 40 mg Documented by: Hydrocortisone (Hydrocortisone 2.5% Crm) 1 applic TOPICAL TID PRN PRN; Protocol PRN Reason: Discomfort Ibuprofen (Ibuprofen 600 Mg Tablet) 600 mg PO Q6H [facility] Last Admin: 11/01/20 08:58 Dose: 600 mg Documented by: Methylergonovine Maleate (Methylergonovine 0.2 Mg/Ml Ampul) 0.2 mg IM X1 PRN PRN Reason: Uterine Atony Ondansetron HCl (Ondansetron 4 Mg/2 Ml Vial) 4 mg IV Q4H PRN PRN PRN Reason: Nausea Last Admin: 10/31/20 07:20 Dose: 4 mg Documented by: Oxycodone HCl (Oxycodone 5 Mg Tablet) 5 - 10 mg PO Q4H PRN PRN PRN Reason: Pain Score 4-10 Last Admin: 10/31/20 20:00 Dose: 5 mg Documented by: Prochlorperazine Edisylate (Prochlorperazine 10 Mg/2 Ml Vial) 10 mg IV Q6H PRN PRN PRN Reason: NAUSEA Senna/Docusate Sodium (Senna/Docusate Sodium 1 Tablet) 0 tablet PO DAILY [facility] Last Admin: 10/31/20 11:03 Dose: Not Given Documented by: Simethicone (Simethicone 80 Mg Tablet) 80 mg PO PCHS PRN PRN Reason: Indigestion/stomach pain Sodium Chloride (0.9% Saline Lock 10 Ml Syringe) 5 - 15 ml IV UD PRN PRN Reason: SALINE FLUSH Last Admin: 11/01/20 03:48 Dose: 10 ml Documented by: Medical Necessity - Tobacco Use Smoking Status: Former smoker Assessment/Plan All Active Problems Type 1 diabetes (Acute) 39 weeks gestation of (Acute) History of section (Acute) POD #1 repeat C/S Routine care Pain control support Discharge home if desires with follow up in office
--- NOTE | 2020-11-01 09:29 | DCINST_ITS ---
Discharge Diet: No Restrictions Discharge Activity: May Not Drive - 2 weeks May resume sexual activity in: 6-8 weeks Weight Bearing Status: Weight bearing as tolerated Lifting Restrictions: 25 lbs Additional Instructions: If you experience any of the following, contact your healthcare provider. * Bleeding that soaks a pad every hour for 2 hours * Fever 100.4 or higher * Unrelieved incision or abdominal pain * Swelling, redness, discharge or bleeding from your incision or episiotomy site * Your incision begins to separate * Problems urinating (including inability to urinate or burning while urinating). * Visual changes * Severe headache * Flu-like symptoms * Pain or redness in one of both of your breasts * Pain, warmth, tenderness or swelling in your legs, especially the calf area * Frequent nausea and vomiting * Symptoms of depression or anxiety If you experience any of the following, call 911 or go to the nearest Emergency Room. * Chest pain * Problems breathing * Seizure activity * Partial or complete paralysis of a body part, slurred speech, weakness or drooping of the face, or a sudden inability to walk or hold your balance Allergies/Adverse Reactions: Allergies No Known Allergies Allergy (Verified 10/31/20 05:34) Medications to take at Discharge Novolog Pump 06/10/18 Vits [Prenatabs FA ] 1 tablet PO DAILY 06/10/18 Ferrous Sulfate 325 mg PO 1200,1700 #0 tablet 12/24/18 Follow-Up: Call to make an appointment with your doctor for an incision check in 1-2 weeks. You will also need a 6 week post- follow up appointment. Test results from this visit will be discussed in further detail at your follow- up appointment, if applicable. Primary Care Physician: Yovany Hurtado MD [Primary Care Provider] - Proposed Discharge Date: 11/01/20
--- NOTE | 2020-11-01 09:29 | PCM.DCCSEC ---
Discharge Diet: No Restrictions Discharge Activity: May Not Drive - 2 weeks May resume sexual activity in: 6-8 weeks Weight Bearing Status: Weight bearing as tolerated Lifting Restrictions: 25 lbs Additional Instructions: If you experience any of the following, contact your healthcare provider. Bleeding that soaks a pad every hour for 2 hours Fever 100.4 or higher Unrelieved incision or abdominal pain Swelling, redness, discharge or bleeding from your incision or episiotomy site Your incision begins to separate Problems urinating (including inability to urinate or burning while urinating). Visual changes Severe headache Flu-like symptoms Pain or redness in one of both of your breasts Pain, warmth, tenderness or swelling in your legs, especially the calf area Frequent nausea and vomiting Symptoms of depression or anxiety If you experience any of the following, call 911 or go to the nearest Emergency Room. Chest pain Problems breathing Seizure activity Partial or complete paralysis of a body part, slurred speech, weakness or drooping of the face, or a sudden inability to walk or hold your balance Allergies/Adverse Reactions: Allergies No Known Allergies Allergy (Verified 10/31/20 05:34) Medications to take at Discharge Novolog Pump 06/10/18 Vits [Prenatabs FA ] 1 tablet PO DAILY 06/10/18 Ferrous Sulfate 325 mg PO 1200,1700 #0 tablet 12/24/18 Follow-Up: Call to make an appointment with your doctor for an incision check in 1-2 weeks. You will also need a 6 week post- follow up appointment. Test results from this visit will be discussed in further detail at your follow-up appointment, if applicable. Primary Care Physician: Yovany Hurtado MD [Primary Care Provider] - Proposed Discharge Date: 11/01/20
--- NOTE | 2020-11-01 09:33 | PCM.DC.SUM ---
Discharge Date and Diagnosis - Problem List Patient Problems: Active and Suspected Problems Type 1 diabetes (Acute) 39 weeks gestation of (Acute) History of section (Acute) Date of Admission: 10/31/20 Date of Discharge: 11/01/20 - Primary Discharge Diagnosis Acute Problems: Active Problems Type 1 diabetes (Acute) 39 weeks gestation of (Acute) History of section (Acute) Hospital Course and Treatment Summary of Care Provided: The patient is a 35 year old F for scheduled repeat section. Hospital course was uneventful. Patient Problems: Active and Suspected Problems Type 1 diabetes (Acute) 39 weeks gestation of (Acute) History of section (Acute) - Physical Exam Vitals/I&O's: Vital Signs Temp Pulse Resp BP Pulse Ox 97.8 F 96 18 114/66 95 11/01/20 09:20 11/01/20 09:20 11/01/20 09:20 11/01/20 09:20 11/01/20 03:47 Oxygen Delivery Method Room Air Weight: 218 lb 3.2 oz Body Mass Index (BMI) 38.6 Intake and Output for Last 24 Hours 10/30/20 10/31/20 11/01/20 23:59 23:59 23:59 Intake Total 3475.67 / 3475.67 Output Total 2300 / 2300 800 / 800 Balance 1175.67 / 1175.67 -800 / -800 Laboratory Results 11/01/20 05:55: WBC 11.7 H, RBC 2.59 L, Hgb 9.2 L, Hct 27.1 L, MCV 104.6 H, MCH 35.5 H, MCHC 33.9, RDW Std Deviation 52.2 H, RDW Coeff of Wayne 13.7, Plt Count 127 L, MPV 10.4 Current Medications Acetaminophen (Acetaminophen 500 Mg Tablet) 1,000 mg PO Q6 [facility] Last Admin: 11/01/20 05:58 Dose: 1,000 mg Documented by: Bisacodyl (Bisacodyl 10 Mg Suppository) 10 mg RC UD PRN PRN Reason: If no BM Enoxaparin Sodium (Enoxaparin 40 Mg/0.4 Ml Syringe) 40 mg SC DAILY [facility] Last Admin: 10/31/20 21:33 Dose: 40 mg Documented by: Hydrocortisone (Hydrocortisone 2.5% Crm) 1 applic TOPICAL TID PRN PRN; Protocol PRN Reason: Discomfort Ibuprofen (Ibuprofen 600 Mg Tablet) 600 mg PO Q6H [facility] Last Admin: 11/01/20 08:58 Dose: 600 mg Documented by: Methylergonovine Maleate (Methylergonovine 0.2 Mg/Ml Ampul) 0.2 mg IM X1 PRN PRN Reason: Uterine Atony Ondansetron HCl (Ondansetron 4 Mg/2 Ml Vial) 4 mg IV Q4H PRN PRN PRN Reason: Nausea Last Admin: 10/31/20 07:20 Dose: 4 mg Documented by: Oxycodone HCl (Oxycodone 5 Mg Tablet) 5 - 10 mg PO Q4H PRN PRN PRN Reason: Pain Score 4-10 Last Admin: 10/31/20 20:00 Dose: 5 mg Documented by: Prochlorperazine Edisylate (Prochlorperazine 10 Mg/2 Ml Vial) 10 mg IV Q6H PRN PRN PRN Reason: NAUSEA Senna/Docusate Sodium (Senna/Docusate Sodium 1 Tablet) 0 tablet PO DAILY [facility] Last Admin: 10/31/20 11:03 Dose: Not Given Documented by: Simethicone (Simethicone 80 Mg Tablet) 80 mg PO PCHS PRN PRN Reason: Indigestion/stomach pain Sodium Chloride (0.9% Saline Lock 10 Ml Syringe) 5 - 15 ml IV UD PRN PRN Reason: SALINE FLUSH Last Admin: 11/01/20 03:48 Dose: 10 ml Documented by: Discharge Diet: No Restrictions Discharge Activity: May Not Drive - 2 weeks May resume sexual activity in: 6-8 weeks Weight Bearing Status: Weight bearing as tolerated Home Medications: Medications to take at Discharge Novolog Pump 06/10/18 Vits [Prenatabs FA ] 1 tablet PO DAILY 06/10/18 Ferrous Sulfate 325 mg PO 1200,1700 #0 tablet 12/24/18 Primary Care Physician: Yovany Hurtado MD [Primary Care Provider] - Medical Necessity - Tobacco Use Smoking Status: Former smoker Meaningful Use Info Meaningful Use Diagnoses (Choose all that apply): None applicable
[2020-11-01] MEDS: Enoxaparin 40 MG/0.4 ML Syringe SC (10:18)
[2020-11-01] MEDS: Senna/Docusate Sodium 1 Tablet PO (10:18)
--- NOTE | 2020-11-01 11:30 | CASEMGMT ---
Social Work Assessment Labor and Delivery Unit Date of Referral: 10/31/2020 Time of Referral: 20:19 Referred By: Dr. Laws Date of Intervention: 11/01/2020 Time of Intervention: 11:30 Reason for Referral: Mother of baby (MOB) with history of depression. History obtained from: MOB, Chart, nursing staff. Household composition: MOB (Arelis Rowe), Father of baby (FOB, Carlitos Rowe), Jayla Rowe (age 1y 10m) and now this infant (Hafsa Rowe) all children in the home share paternity and maternity. Patient's parent/guardian status: MOB and FOB have been for 4 years and together for 5 years. MOB reports to have one other child, Rocky Pineda (age 19) that does not share paternity with other children. MOB reports that Rocky is moved out of the house now. MOB reports to have had rocky at the age of 19. MOB reports to have positive relationship with FOB and to feel safe with FOB. MOB reports that was planned and accepted. Medical History: MOB with history prior to delivery of this infant. MOB with history of depression. MOB with appropriate care visits. Infant born on 10/31/2021 with apgars of 9 and 9 at 1min and 5ming. Infant to follow with [place] sock folder (Dr. Iglesias). Educational Status: MOB denies any issues with comprehension or understanding. Financial Status: MOB denies any financial issues or concerns. Supplies: MOB reports to have all needed supplies within the home including a car seat and crib. Childcare/Caregiver(s): MOB reports to be primary caregiver until MOB returns to work when MOB?s family will have infant. Jayla is currently with MOB?s family. Transportation: MOB denies any transportation issues or concerns. Programs/Agencies Involved: MOB denies any active community services. Children Services/Legal Issues: MOB denies any history of or active children services involvement. Mental Health History: MOB reports depression with first (Rocky), 19 years ago. MOB denies any depression with this or past . MOB reports ?it was a rough time in my life.? MOB reports a history of counseling but no active counseling. MOB denies any suicidal thoughts or history of. This oncology social work able to engage in conversation about depression signs and symptoms with MOB. Substance Use History: MOB denies any substance abuse/use. There is no smoking in the home. Maternal and Drug Screens: None obtained. PHQ9: Did not trigger. Family/Social Stressors: MOB reports no current social or family stressors. Support Systems: MOB reports to have positive support from family in the community. Depression and Anxiety/Shaken Baby/Safe Sleeping: MOB provided with resources on depression/anxiety, Shaken Baby, Safe Sleeping and [facility]. MOB responding appropriately to safe sleeping and shaken baby prompts. ASSESSMENT: Met with MOB and in room. Introduced self and oncology social work role. MOB agreeable to meet with this oncology social work. MOB denies any concerns on returning to home. MOB with positive and engaged affect throughout assessment. MOB reports to have a connection with and gazes as often throughout assessment. Infant resting on back in bassinet during conversation. Active support and listening provided. PLAN: Infant to discharge to home with MOB, FOB and other sibling. No other services requested or indicated. Sulaiman QIU, DONIS
[2020-11-01 13:49] VITALS: BP 114/73; PULSE 96; RESP 14; TEMP 36.7
== END 2020-11-01 14:20 | disposition home or self-care (01) | DRG 788 ==
PROVIDERS: Admitting Provider Obstetrics & Gynecology; PCP Family Medicine; Referring Provider Obstetrics & Gynecology; Visit Provider Obstetrics & Gynecology
PROC: 10D00Z1 Extraction of Products of Conception, Low, Open Approach (ICD-10-PCS; CPT 59514; principal; 2020-10-31 07:15)
DX: O65.5 Obstructed labor due to abnormality of maternal pelvic organs (principal); O34.211 Maternal care for low transverse scar from previous cesarean delivery; O24.92 Unspecified diabetes mellitus in childbirth; E10.9 Type 1 diabetes mellitus without complications; Z3A.39 39 weeks gestation of pregnancy; Z37.0 Single live birth; Z87.891 Personal history of nicotine dependence; Z79.4 Long term (current) use of insulin
CPT/HCPCS: 82962; 85025; 85027; 86850; 86900; 86901; 99218; J7120; A4216; G0378; J2405